=== PATIENT | female | born 1950 | race Caucasian/White ===

== ENCOUNTER → 2016-10-03 | Outpatient (CLI) | payer MEDICARE, OTHER, SELFPAY ==
[~2016-10-03] MED LIST: /DULO30CA; /WARF25TA; ACET65TA; ALBU17IN INH; ALBU17IN2 INH; ALLE25CA; AMBI5TAB; AZIT500T2 PO; BACL-67 PO; CEFD1CAP8 PO; CLAR5CHW; CLON0.5T PO; CLON1TAB PO; COLA100C2; CYMB60CA3 PO; ISOS30TAB PO; LAMO25TA2 PO; LASI20TA PO; METO25TAB PO; MULTCAP PO; NAPR500T2 PO; OMEP10CASR PO; OMEP40CA2 PO; OXYC10TA12 PO; OXYC10TA56; OXYC10TA97; PERC5TAB8; PERC7.5T8; PRAV40TA2 PO; SENN8.6T10 PO; SING10TA32 PO; SOMA350T; TEMA30CA PO; TOPA50TA7 PO; TOPI100T; TOPI200T4 PO; TOPI50TA4 PO; TRAZ100T4 PO; VITA200016 PO; VITACAP8 PO; XOPEAER; ZETI10TA2 PO; prevastatin PO
--- NOTE | 2016-10-04 08:20 | REPMRS ---
Patient History The patient states she has not had a clinical breast exam in over a year. Family history of prostate cancer in father, unknown cancer in sister, breast cancer in maternal cousin, and colorectal cancer in paternal uncle. Digital Mammo Screening Bilat: October 03, 2016 - Exam #: [id number] Bilateral CC and MLO view(s) were taken. Technologist: Meghann Merritt, Technologist Prior study comparison: June 10, 2015, bilateral digital mammo screening bilat performed at [facility]. FINDINGS: The breast tissue is heterogeneously dense. This may lower the sensitivity of mammography. There is a moderate amount of heterogeneously dense fibroglandular tissue which is fairly symmetric. There is no interval development of dominant mass, architectural distortion, or clustered microcalcification typical of malignancy. There has been no change in the appearance of the mammogram from the prior studies. ASSESSMENT: BI-RADS/ACR category 1 mammogram. Negative. Recommendation Routine screening mammogram of both breasts in 1 year (for women over age 40). This mammogram was interpreted with the aid of an FDA-approved computer-aided dectection system. Electronically Signed By: Vipul Livingston MD 10/04/16 2016
== END ==
LOC: M RAD 13:37
PROVIDERS: ATTEND Nurse Practitioner Family
DX: Z12.31 Encounter for screening mammogram for malignant neoplasm of breast (principal); R92.8 Other abnormal and inconclusive findings on diagnostic imaging of breast

== ENCOUNTER → 2016-12-14 | Outpatient (CLI) | payer MEDICARE ==
[~2016-12-14] MED LIST changes: -BACL-67 PO; +BACL1TAB9 PO; -NAPR500T2 PO; +NAPR500T3 PO; +SENN1TAB10 PO; -SENN8.6T10 PO; -TOPA50TA7 PO; +TOPA50TA8 PO; -TOPI200T4 PO; +TOPI200T7 PO; -TOPI50TA4 PO; +TOPI50TA9 PO; +TRAZ-136 PO; -TRAZ100T4 PO; -ZETI10TA2 PO; +ZETI10TA30 PO
[2016-12-14 15:53] LABS: ALBUMIN 3.9 GM/DL (3.2-5.2); ALBUMIN/GLOBULIN RATIO 1.44 (1.00-1.93); ALKALINE PHOSPHATASE 84 U/L (45-117); ALT/SGPT 25 U/L (12-78); ANION GAP 8 MEQ/L (8-16); AST/SGOT 16 U/L (15-37); BILIRUBIN,TOTAL 0.4 MG/DL (0.2-1.0); BLOOD UREA NITROGEN 12 MG/DL (7-18); CALCIUM LEVEL 8.8 MG/DL (8.8-10.2); CARBON DIOXIDE LEVEL 32 MEQ/L (21-32); CHLORIDE LEVEL 102 MEQ/L (98-107); CHOLESTEROL LEVEL 265 MG/DL (<200); CREATININE FOR GFR 0.75 MG/DL (0.55-1.02); GLOMERULAR FILTRATION RATE > 60.0 (>45); GLUCOSE, FASTING 81 MG/DL (80-110); SODIUM LEVEL 142 MEQ/L (136-145); TOTAL PROTEIN 6.6 GM/DL (6.4-8.2); TRIGLYCERIDES LEVEL 127 MG/DL (<150)
== END ==
LOC: M LAB 13:51
PROVIDERS: ATTEND Family Medicine Addiction Medicine
DX: E78.5 Hyperlipidemia, unspecified (principal); E55.9 Vitamin D deficiency, unspecified; I10 Essential (primary) hypertension

== ENCOUNTER → 2017-06-16 | Outpatient (REF) | payer MEDICARE ==
[2017-06-16 17:58] LABS: ALBUMIN 4.4 GM/DL (3.2-5.2); ALBUMIN/GLOBULIN RATIO 1.47 (1.00-1.93); ALKALINE PHOSPHATASE 87 U/L (45-117); ALT/SGPT 35 U/L (12-78); ANION GAP 9 MEQ/L (8-16); AST/SGOT 23 U/L (7-37); BILIRUBIN,TOTAL 0.7 MG/DL (0.2-1.0); BLOOD UREA NITROGEN 8 MG/DL (7-18); CARBON DIOXIDE LEVEL 31 MEQ/L (21-32); CHLORIDE LEVEL 99 MEQ/L (98-107); CHOLESTEROL LEVEL 303 MG/DL (<200); CHOLESTEROL RISK RATIO 2.831 (<5); CREATININE FOR GFR 0.88 MG/DL (0.55-1.30); GLOMERULAR FILTRATION RATE > 60.0 (>45); GLUCOSE, FASTING 88 MG/DL (70-100); HDL CHOLESTEROL 107 MG/DL (>40); LDL CHOLESTEROL 177.2 MG/DL (<100); NON-HDL-C 196 MG/DL; POTASSIUM SERUM 3.7 MEQ/L (3.5-5.1); SODIUM LEVEL 139 MEQ/L (136-145); TOTAL PROTEIN 7.4 GM/DL (6.4-8.2); TRIGLYCERIDES LEVEL 94 MG/DL (<150)
[2017-06-16 17:59] LABS: TOTAL 25(OH) VITAMIN D 29.1 NG/ML (30.0-100.0)
== END ==
LOC: M LAB REF 16:43
DX: E78.5 Hyperlipidemia, unspecified (principal)
CPT/HCPCS: 84443